=== PATIENT | male | born 1980 | race Caucasian/White ===

== ENCOUNTER 2023-05-23 06:12 | Observation (INO) ==
--- NOTE | 2023-04-29 15:11 | PAT Medication Instructions ---
Medication Instructions Date of Service April 29, 2023 Home Medications Natures Balance Fruits 2 tab PO DAILY Natures Balance Veges 2 tab PO DAILY ibuprofen 200 mg tablet 8,000 mg PO Q6H PRN Pain ASK your surgeon for instructions ibuprofen 200 mg tablet 8,000 mg PO Q6H PRN Pain STOP taking 2 weeks before surgery Natures Balance Fruits 2 tab PO DAILY Natures Balance Veges 2 tab PO DAILY OTHERWISE NOTHING TO EAT OR DRINK AFTER MIDNIGHT Other Notes If you have any questions please call us at [phone] or [phone] or [phone] or [phone]
--- NOTE | 2023-05-06 10:56 | Anesthesiology Consultation ---
Date of Service May 06, 2023 Assessment & Plan (1) Encounter for pre-operative examination: Infectious disease screening: Per assessment on 05/06/23: No known infectious disease contacts or current infectious disease symptoms. No noted Covid positive test result in past 90 days. Chart Review Chart Review: Acceptable Risk for Surgery and Patient seen in Pre Admission Testing Teaching & Discussion Pre-Anesthesia Teaching/Discussion Notes: Instructed NPO after midnight before surgery,except medications with 15 cc of water. Medication instructions provided according to the PAT guidelines. History Surgery Operation Date: 05/23/23 10:15 Proposed Procedures p C6 Corpectomy with Spinal Cord Monitoring - John Paul Clark DO Height/Weight Height: 5 ft 7 in Weight: 79.3 kg Allergies Allergy/AdvReac Type Severity Reaction Status Date / Time No Known Allergies Allergy Verified 04/29/23 10:56 Medications Home Medications Medication Instructions Recorded Confirmed Last Taken Natures Balance Fruits 2 tab PO DAILY 04/29/23 04/29/23 Unknown Natures Balance Veges 2 tab PO DAILY 04/29/23 04/29/23 Unknown ibuprofen 200 mg tablet 8,000 mg PO Q6H PRN Pain 04/29/23 04/29/23 Unknown Past Medical History Medical History Anxiety and depression Hx MRSA infection Dx UOC (2018), leg wound, treated w/abx Exercise / Class Metabolic Activity II 4-5 Yardwork/Stairs/Walk up hill (one FS (no CP, no SOB)) Past Family History Family History Other Cancer Past Surgical History Surgical History History of back surgery History of photorefractive keratectomy (PRK) Right Hx of LASIK Hx of umbilical hernia repair 2020 S/P wisdom tooth extraction w/ root canal-done under local Past Anesthesia History No Hx of Anesthesia Complications and No Family Hx of Anesthesia Complications History of PONV No Hx of PONV and No Hx of Motion Sickness Social History Smoking Status: Current every day smoker Smoking cigarettes per day: 20 cigs/day x approximately 20 years Do You Dip or Chew Tobacco: No Hx Alcohol Use: Yes Alcohol type: other (One 12 pack per week spread throughout week (twisted tea)) Hx Substance Use: Yes substance use type: marijuana (Inhaled) Review of Systems Chronic occasional cough + wheezing r/t smoking (no change from baseline). Patient denies chest pain, shortness of breath, dyspnea on exertion, fever, chills, palpitations. Physical Exam Vital Signs VITALS BP 125/82 P 67 TEMP 99.0 SP02 95%RA RESP 18 PHYSICAL Full cervical extension range of motion. Full TMJ range of motion. TMD 3.5 finger breaths Mallampati Score 2 Dentition: missing molars, + crown Lungs: course breath sounds Cardiac: regular rate and rhythm, no murmurs noted Spine: normal Carotid arteries: negative bruit Extremities: no LE edema Lab Results Anesthesia Preop Results Results Anesthesia Widget: WBC 8.48 K/ul (4.8-10.8) 05/06/23 Hgb 16.7 g/dl (14.0-18.0) 05/06/23 Hct 47.9 % (42.0-52.0) 05/06/23 Plt 263 K/uL (130-400) 05/06/23 Na 141 mmol/L (136-145) 05/06/23 K 3.9 mmol/L (3.5-5.1) 05/06/23 Cl 107 mmol/L (98-107) 05/06/23 CO2 28 mmol/L (21-32) 05/06/23 BUN 14 mg/dl (6-23) 05/06/23 Creat 1.25 mg/dl (0.6-1.4) 05/06/23 Glucose Level 139 mg/dl (70-99(Fasting)) H 05/06/23 PT 11.5 Seconds (9.0-12.0) 05/06/23 PTT 25.6 Seconds (21.0-31.0) 05/06/23 INR 1.1 (0.9-1.1) 05/06/23 Urine Color Yellow 05/06/23 Urine Appearance Clear (Clear) 05/06/23 Urine pH 5.5 (4.5-7.5) 05/06/23 Urine Specific [place] 1.018 (1.000-1.030) 05/06/23 Urine Protein Negative (Negative) 05/06/23 Urine Glucose (UA) Negative (Negative) 05/06/23 Urine Ketones Negative (Negative) 05/06/23 Urine Blood Negative (Negative) 05/06/23 Urine Nitrite Negative (Negative) 05/06/23 Urine Bilirubin Negative (Negative) 05/06/23 Urine Urobilinogen Negative (Negative) 05/06/23 Urine Leukocyte Esterase Negative (Negative) 05/06/23 Blood Type A Positive 05/06/23 Antibody Screen NEGATIVE 05/06/23 Testing Electrocardiogram Date: 05/06/23 NSR at 63bpm. Chest X-Ray Date: 05/06/23 FINDINGS: PA and lateral chest radiographs are compared to study dated 05/14/2016. The cardiomediastinal silhouette is unremarkable. The lungs and pleural spaces are clear. There is no pneumothorax. The bony thorax appears intact. IMPRESSION: No active disease in the chest. Echocardiogram Date: 01/28/22 EF 55-60%. Moderate NH. Borderline LVH.
[~2023-05-23 06:12] MED LIST: ACETAMINOPHEN 500 MG TAB PO SCH; CeleBREX 200 MG CAP PO SCH; GABAPENTIN 900 MG DOSE PO SCH; LR 15ML/HR IV SCH; LR 60ML/HR IV SCH; ceFAZolin 2000MG 2,000 MG/15 ML SYR IV SCH
[2023-05-23] MEDS ORDERED: DEXAMETHASONE SOD INJ 4 MG/ML VIAL ONE (06:41)
[2023-05-23] MEDS ORDERED: MIDAZOLAM HCL 1 MG/ML 2ML VIAL ONE (06:41)
[2023-05-23] MEDS ORDERED: fentaNYL citrate PF 100 MCG/2 ML VIAL ONE (06:41)
[2023-05-23] MEDS ORDERED: LIDOCAINE 2% 2 ML VIAL/AMP(20MG/ML) INFIL ONE (06:41)
[2023-05-23] MEDS ORDERED: ONDANSETRON INJ 2 MG/ML 2 ML VIAL ONE (06:41)
[2023-05-23] MEDS ORDERED: ROCURONIUM BROMIDE 10 MG/ML 5 ML VIAL IV ONE (06:41)
[2023-05-23] MEDS ORDERED: PROPOFOL IV EMULSION 10 MG/ML 20 ML VIAL IV ONE (06:41)
[2023-05-23] MEDS ORDERED: SUGAMMADEX SODIUM 200 MG/2 ML VIAL IV ONE (06:49)
[2023-05-23] MEDS ORDERED: ePHEDrine sulfate 50 MG/ML AMP IV PRN (07:01)
[2023-05-23] MEDS ORDERED: ONDANSETRON INJ 2 MG/ML 2 ML VIAL IV PRN ×2 (07:01→12:24)
[2023-05-23] MEDS ORDERED: ATROPINE SULFATE 0.1 MG/ML 10ML SYR IV PRN (07:01)
[2023-05-23] MEDS ORDERED: ceFAZolin 330 MG/ML 1 GM VIAL ONE (07:02)
--- NOTE | 2023-05-23 07:47 | History & Physical Bridge Note ---
Date of Service May 23, 2023 History & Physical Bridge Note I have examined the patient, reviewed the History & Physical and in the interval since the performance of the History & Physical I have noted the following changes of clinical significance: no changes noted
--- NOTE | 2023-05-23 07:48 | History & Physical Report ---
Date of Service May 23, 2023 Assessment & Plan (1) Cervical stenosis of spinal canal: Plan: C6 corpectomy History of Present Illness Chief Complaint: Neck and arm pain Primary Care Provider: Lisandro Grossman DO This is a 42-year-old male who presents with chronic persistent neck and arm pain after failing course of nonoperative care is here for surgical intervention. Allergies Allergy/AdvReac Type Severity Reaction Status Date / Time No Known Allergies Allergy Verified 05/23/23 06:36 Home Medications Medication Instructions Recorded Confirmed Type Natures Balance Fruits 2 tab PO DAILY 04/29/23 05/23/23 History Natures Balance Veges 2 tab PO DAILY 04/29/23 05/23/23 History ibuprofen 200 mg tablet 800 mg PO Q6H PRN Pain 04/29/23 05/23/23 History Past Med/Surg History Medical History Anxiety and depression Hx MRSA infection Dx UOC (2017), leg wound, treated w/abx Surgical History History of back surgery History of photorefractive keratectomy (PRK) Right Hx of LASIK Hx of umbilical hernia repair 2020 S/P wisdom tooth extraction w/ root canal-done under local Family History Other Cancer Social History Smoking Status: Current every day smoker Tobacco Type: Cigarettes Cigarettes Per Day: 20 cigs/day x approximately 20 years; Second Hand Exposure: No; Do You Dip or Chew Tobacco: No; Tobacco Cessation Education Requested by Patient: No Hx Alcohol Use: Yes Alcohol type: other (One 12 pack per week spread throughout week (twisted tea)) Hx Substance Use: Yes Preferred Language: Yi Communication Ability: Effective Soil Chemist Required: No Beliefs That Will Affect Care: None Current Living Situation: Alone Other Information That Helps Us Care for You: No Feels Safe at Home: Yes Safety Concerns: Feels Safe At This Time Assistive Devices: Glasses Physical Exam Physical Exam: Patient is alert and oriented Heart regular rhythm Lungs clear Results & Data Results & Data Vital Signs (Past 12 Hours) Vital Signs Temp Pulse Resp BP Pulse Ox O2 Del Method 05/23/23 06:36 37 C 50 L 18 135/83 97 Room Air
[2023-05-23] MEDS ORDERED: FLOSEAL HEMOSTATIC MATRIX 10ML TOP ONE (09:02)
--- NOTE | 2023-05-23 09:33 | Operative Report ---
Post Operative Report Pre & Post Diagnosis Operation Date: 05/23/23 07:45 Pre-Op Diagnosis: Cervical spinal stenosis with myeloradiculopathy Post-Op Diagnosis: Same I identified the patient and participated in the time-out.: Yes Procedure Operation Date: 05/23/23 07:45 Actual Procedures #1 anterior cervical corpectomy with bilateral foraminotomies of C6. #2 anterior cervical arthrodesis C5-C7. #3 placement of 25 mm peek cage between C4-5 and C7. #4 placement of our similar size Combined with I factor interbody cage. #5 application of K2 M plate and screws from C5-C7. Surgeon John Paul Clark DO Analytical Lead Jovana Bales Estimated Blood Loss 10 Findings Consistent with Post-Op Diagnosis Specimens None Indications This is a 42-year-old male presents above-mentioned diagnosis ultimately course of nonoperative care is here for surgical invention. Description of Procedure Patient is met with identified informed consent obtained. Patient was then taken to the operative suite underwent patient placed in supine position general stable with head Garcia however. Elevated prominences well-padded eyes inspected to ensure no external pressure responding. This point the anterior cervical spine was prepped and draped in a sterile fashion. The assistance of fluoroscopy Joyce Radford do see 6 vertebral body and a transverse incision was placed along the right anterior aspect of the cervical spine at minus region. Blunt dissection with the assistance of bipolar electrocautery was then performed down to expose the anterior cervical spine from C5-C7. Self-retaining tractors were placed. Then performed a complete discectomy C5-C6 out to the uncovertebral joints bilaterally followed by C6-C7. Burt distraction pins were then placed in C5 and C7 to distract across the C5 vertebral body.. A complete corpectomy of C6 was performed including removal of all posterior annular fibers longitude ligament bilateral foraminotomies performed. Endplates burred to subcortical bleeding bone and a 25 mm peek cage filled with locally harvested morselized autograft and I factor tapped in position. Distracted and pressors removed and a K2 M plate and screws applied with the assistance of fluoroscopy. Incision was then copiously irrigated explored to ensure no damage to surrounding structures or remaining bleeding. 10 round PATRICE drain inserted. The incision was then closed with 2-0 Vicryl in the fascia and a 4 Monocryl for final skin closure. Steri-Strips sterile dressings placed. Patient awakened taken to PACU in stable condition. Please note spinal cord monitoring was utilized at the procedure no changes noted. Lastly Jovana Bales was present at the entire procedure while the patient position complex portion of the surgery and fashion closure. I attest to the content of the Intraoperative Record and any orders documented therein. Any exceptions are noted below.
[2023-05-23] MEDS: fentaNYL citrate PF 100 MCG/2 ML VIAL IV PRN ×2 (09:57→10:04)
[2023-05-23] MEDS: HYDROmorphone INJ 2 MG/ML SYR/VIAL IV PRN ×4 (10:13→10:29)
--- NOTE | 2023-05-23 10:43 | Fluoroscopy Report ---
INTRAOPERATIVE RADIOGRAPHS CLINICAL HISTORY: C6 corpectomy. Fluoro time: 12 seconds Ka,r: 2.17 mGy FINDINGS: 2 spot fluoroscopic views of the cervical spine are presented. There has been corpectomy at C6 with anterior fusion at C5-C7. The orthopedic hardware appears intact. A surgical drain and endot lee tube are in place. IMPRESSION: Intraoperative images from cervical spinal fusion surgery as above. Electronically signed by: Elmo Berry M.D. 05/23/2023 10:42 AM
--- NOTE | 2023-05-23 11:53 | Anesthesiology Progress Note ---
Date of Service May 23, 2023 Anesthesia Post Procedure Vital Signs Vital Signs: Temp Pulse Pulse Resp BP Pulse Ox O2 Del Method 05/23/23 11:25 59 L 15 132/88 95 Nasal Cannula 05/23/23 11:10 48 L 12 128/89 95 Nasal Cannula 05/23/23 10:55 49 L 12 124/79 94 Nasal Cannula 05/23/23 10:40 36.7 C 51 L 12 139/85 94 Nasal Cannula 05/23/23 10:30 57 L 10 L 158/103 H 98 Nasal Cannula 05/23/23 10:20 64 12 150/101 H 96 Nasal Cannula 05/23/23 10:10 62 13 149/103 H 96 Nasal Cannula 05/23/23 10:00 58 L 12 143/115 H 96 Oxymask 05/23/23 09:50 63 12 137/96 93 Oxymask 05/23/23 09:40 36.1 C L 63 12 165/98 H 95 Oxymask 05/23/23 06:36 37 C 50 L 18 135/83 97 Room Air O2 Flow Rate 05/23/23 11:25 2 05/23/23 11:10 2 05/23/23 10:55 2 05/23/23 10:40 2 05/23/23 10:30 2 05/23/23 10:20 2 05/23/23 10:10 2 05/23/23 10:00 5 05/23/23 09:50 5 05/23/23 09:40 5 05/23/23 06:36 Pain Intensity Neck: Pain Intensity: 4 Anterior Neck: Pain Intensity: 3 Transfer of Care Handoff Completed per policy Notes Mental Status: alert / awake / arousable and participated in evaluation Patient Amnestic to Procedure: Yes Nausea / Vomiting: adequately controlled Pain: adequately controlled Airway Patency, RR, SpO2: stable & adequate BP & HR: stable & adequate Hydration State: stable & adequate Anesthetic Complications: no major complications apparent and Pt Satisfied with anesthetic care
[2023-05-23] MEDS ORDERED: dexAMETHasone 8 MG in SYRINGE 0 ML IV PRN (12:24)
[2023-05-23] MEDS ORDERED: METOCLOPRAMIDE HCL INJ 5 MG/ML 2 ML VIAL IV PRN (12:24)
[2023-05-23] MEDS ORDERED: bisacodyL 10 MG SUPP PR PRN (12:24)
[2023-05-23] MEDS ORDERED: SOD PHOSPHATE/SOD BIPHOSPHATE ENEMA 132 ML BTL PR PRN (12:24)
[2023-05-23] MEDS ORDERED: RACEPINEPHRINE 2.25% NEBU SOLN 0.5 ML VIAL INH PRN (12:24)
[2023-05-23] MEDS ORDERED: DO NOT ADMINISTER FLU VACCINE PRN (12:24)
[2023-05-23] MEDS ORDERED: hydrOXYzine HCl 25 MG TAB PO PRN (12:24)
[2023-05-23] MEDS ORDERED: PROMETHAZINE HCL 12.5 MG in SODIUM CHLORIDE 0.9% 50 ML IV PRN (12:24)
[2023-05-23] MEDS ORDERED: ALUMINUM/MAGNESIUM SUSP 30 ML UDC PO PRN (12:24)
[2023-05-23] MEDS ORDERED: ACETAMINOPHEN 500 MG TAB PO PRN (12:24)
[2023-05-23] MEDS ORDERED: ACETAMINOPHEN 1,000 MG/100 ML VIAL IV PRN (12:24)
[2023-05-23] MEDS ORDERED: MAGNESIUM HYDROXIDE SUSP 30 ML UDC PO PRN (12:24)
[2023-05-23] MEDS ORDERED: NALOXONE HCL 0.4 MG/1 ML VIAL/CARP IV PRN (12:24)
[2023-05-23] MEDS ORDERED: ONDANSETRON 4 MG OD TAB PO PRN (12:24)
[2023-05-23] MEDS ORDERED: DO NOT ADMINISTER PNEUMOCOCCAL VACCINE PRN (12:24)
[2023-05-23] MEDS ORDERED: traMADol HCL 50 MG TABLET PO PRN (12:24)
[2023-05-23] MEDS ORDERED: HYDROmorphone INJ 1 MG/ML SYRINGE IV PRN (12:24)
[2023-05-23] MEDS ORDERED: FAMOTIDINE 20 MG TAB PO PRN (12:24)
[2023-05-23] MEDS ORDERED: LORazepam 2 MG/1 ML VIAL IV PRN (12:24)
[2023-05-23] MEDS ORDERED: diphenhydrAMINE Capsule 25 MG CAP PO PRN (12:24)
[2023-05-23] MEDS: ceFAZolin 2000MG 2,000 MG/15 ML SYR IV SCH (16:24)
[2023-05-23] MEDS: LACTATED RINGER'S 1,000 ML IV SCH (16:25)
[2023-05-23] MEDS: oxyCODONE HCL IR 5 MG TAB (IMMEDIATE RELEASE) PO PRN (17:37)
[2023-05-23] MEDS ORDERED: DOCUSATE SODIUM/SENNA 50/8.6MG TAB PO SCH (21:00)
[2023-05-23] MEDS: LORazepam 0.5 MG TAB PO PRN (21:06)
[2023-05-23] MEDS: HYDROmorphone INJ 0.5 MG/0.5 ML SYR IV PRN (23:19)
[2023-05-24] MEDS: ceFAZolin 2000MG 2,000 MG/15 ML SYR IV SCH (01:10)
--- NOTE | 2023-05-24 01:49 | Hospitalist Consultation ---
Date of Consultation May 24, 2023 Assessment & Plan (1) Shortness of breath: 42 yo male with PMHx of cervical stenosis. Post op day 1 s/p anterior cervical corpectomy with bilateral foraminotomies with fusion. Hospitalist service consulted for shortness of breath. #Shortness of breath -minimal acute on chronic sob with phlegm production in lungs. Typically able to cough up secretions however unable to do so 2/2 recent cervical surgery. Exam with diffuse rales/wheezes. Patient is a chronic smoker, suspect component of COPD ?in exacerbation. Vitals wnl on RA, without accessory muscle use. Unfortunately patient will be limited for secretion elimination due to the surgery. Low suspicion for PE at this time. -CXR unremarkable per my read. Appears similar to imaging 2 wks ago. -start duonebs scheduled -due for dexamethasone in the am per ortho, which should also help if underlying COPD DVT ppx: ambulation FEN/GI: clears Code Status: full Dispo: med surg Thank you for allowing the hospital team to participate in this patient's care. Plan as above. Will continue to follow. (2) Rhonchi: (3) Cervical stenosis of spinal canal: Supervising Physician Co-Signing Physician Notes Attending addendum: I have supervised the medical residents activities, and agree with the H&P unless as otherwise noted. Assessment and Plan: Shortness of breath- History of tobacco use, likely undiagnosed COPD with exacerbation Chest x-ray without acute findings Duonebs every 4 hours while awake and every 2 hours when necessary. Dexamethasone to be started for orthopedic process in a.m., will help underlying COPD as well Status post spine surgery- Otherwise stable vital signs History of Present Illness Reason for Consultation: shortness of breath Attending Physician: John Paul Clark DO History of Present Illness 42 yo male with PMHx of cervical stenosis. Post op day 1 s/p anterior cervical corpectomy with bilateral foraminotomies with fusion. Hospitalist service consulted for shortness of breath. Patient states he has chronic intermittent shortness of breath with phlegm production he usually coughs up. However, due to his surgery, he is not allowed to cough anything up. He can feel the phlegm in his chest and has very minimal shortness of breath at this time. Denies headache, cp, abd pain, N/V/D, fevers, chills, fatigue. He is a current smoker, 1 pack/day for past 20 years. No previous diagnosis of COPD. Not on inhalers at home. Allergies Allergy/AdvReac Type Severity Reaction Status Date / Time No Known Allergies Allergy Verified 05/23/23 06:36 Home Medications Medication Instructions Recorded Confirmed Type Natures Balance Fruits 2 tab PO DAILY 04/29/23 05/23/23 History Natures Balance Veges 2 tab PO DAILY 04/29/23 05/23/23 History ibuprofen 200 mg tablet 800 mg PO Q6H PRN Pain 04/29/23 05/23/23 History oxycodone 5 mg tablet 5 mg PO Q6H PRN pain #20 tabs 05/23/23 Rx tramadol 50 mg tablet 50 mg PO Q6H PRN pain, moderate 05/23/23 Rx #20 tabs Patient History Medical History Anxiety and depression Hx MRSA infection Dx UOC (2017), leg wound, treated w/abx Surgical History History of back surgery History of photorefractive keratectomy (PRK) Right Hx of LASIK Hx of umbilical hernia repair 2020 S/P wisdom tooth extraction w/ root canal-done under local Family History Other Cancer Social History Smoking Status: Current every day smoker Tobacco Type: Cigarettes Cigarettes Per Day: 20 cigs/day x approximately 20 years; Second Hand Exposure: No; Do You Dip or Chew Tobacco: No; Tobacco Cessation Education Requested by Patient: No Hx Alcohol Use: Yes Alcohol type: other (One 12 pack per week spread throughout week (twisted tea)) Hx Substance Use: Yes Preferred Language: Slovenian Communication Ability: Effective Piece Goods Clerk Required: No Beliefs That Will Affect Care: None Current Living Situation: Alone Other Information That Helps Us Care for You: No Feels Safe at Home: Yes Safety Concerns: Feels Safe At This Time Assistive Devices: Glasses Review of Systems Review of Systems: All systems reviewed & are unremarkable except as noted in HPI & below Physical Exam Physical Exam: Constitutional: in no acute distress, pleasant and normal affect, intact memory. AOx3. Vitals as above. HEENT: No scleral injection or discharge.Moist mucous membranes. Neck: Supple without lymphadenopathy or thyromegaly. Trachea midline. Bandages over surgical site at anterior cervical region. Lungs: +diffuse rhonchi with wheezing. Normal work of breathing. Cardiac: Regular rate and rhythm.No murmurs.No lower extremity edema. 2+ distal peripheral pulses. No calf pain. Neg homans. Abdomen: Bowel sounds present. Soft, nontender, and nondistended.No guarding. No hepatosplenomegaly. MSK: No cyanosis or clubbing. Extremities motor strength 5/5. Skin: No warm, dry. Neurologic: no focal deficits Results & Data Results & Data Vital Signs (Past 12 Hours) Vital Signs Temp Pulse Resp BP Pulse Ox O2 Del Method 05/23/23 20:00 Room Air 05/24/23 00:54 37.0 C 60 18 128/74 96 Room Air 05/23/23 22:54 36.8 C 66 18 143/82 H 96 Room Air 05/23/23 22:57 68 18 97 Room Air 05/23/23 20:00 69 18 98 Room Air 05/23/23 20:48 36.5 C 56 L 18 125/76 96 Room Air 05/23/23 19:00 36.8 C 59 L 18 135/88 99 Room Air 05/23/23 17:40 97 Room Air 05/23/23 15:00 63 18 97 Room Air 05/23/23 15:14 36.4 C L 58 L 16 120/84 98 Room Air 05/23/23 14:16 36.8 C 56 L 16 130/83 95 Room Air Laboratory Results Impressions Cervical Spine X-Ray 05/23/23 07:45 INTRAOPERATIVE RADIOGRAPHS CLINICAL HISTORY: C6 corpectomy. Fluoro time: 12 seconds Ka,r: 2.17 mGy FINDINGS: 2 spot fluoroscopic views of the cervical spine are presented. There has been corpectomy at C6 with anterior fusion at C5-C7. The orthopedic hardware appears intact. A surgical drain and endotracheal tube are in place. IMPRESSION: Intraoperative images from cervical spinal fusion surgery as above. Electronically signed by: Elmo Berry M.D. 05/23/2023 10:42 AM Resident Activity Tracking Resident Involvement: Resident Care Provided Care Provided: [facility]
[2023-05-24] MEDS: ALBUT/IPRATROP 3MG/0.5MG NEB 3 ML VIAL NEB SCH ×3 (02:05→10:05)
[2023-05-24] MEDS: HYDROmorphone INJ 0.5 MG/0.5 ML SYR IV PRN (02:24)
[2023-05-24] MEDS: LACTATED RINGER'S 1,000 ML IV SCH (02:26)
[2023-05-24] MEDS ORDERED: POLYETHYLENE (MIRALAX) 17 GM PACK PO SCH (06:00)
[2023-05-24] MEDS: oxyCODONE HCL IR 5 MG TAB (IMMEDIATE RELEASE) PO PRN (06:09)
--- NOTE | 2023-05-24 06:29 | Billing Data ---
Date of Service May 24, 2023 Coding Level of Care Code 86839 IN/OBS CONSULT LVL 3,45M
[2023-05-24 06:51] LABS: Basophils # (auto) 0.04 K/uL (0.00-0.20); Basophils % (auto) 0.2 %; Hematocrit (blood only) 41.3 % (42.0-52.0); Hemoglobin 14.6 g/dl (14.0-18.0); Immature Granulocytes # (auto) 0.15 K/uL (0.01-0.20); Immature Granulocytes % (auto) 0.6 %; Lymphocytes # (auto) 1.73 K/uL (1.20-3.40); Lymphocytes % (auto) 7.5 %; Mean Corpuscular Hemoglobin 30.1 pg (25.0-34.0); Mean Corpuscular Hgb Conc 35.4 g/dL (32.0-36.0); Mean Corpuscular Volume 85.2 fL (80.0-100.0); Mean Platelet Volume 10.9 fL (9.4-12.4); Monocytes # (auto) 1.48 K/uL (0.11-0.59); Monocytes % (auto) 6.4 %; Neutrophils # (auto) 19.71 K/uL (1.40-6.50); Neutrophils % (auto) 85.3 %; Platelet Count 234 K/uL (130-400); RDW Standard Deviation 37.3 fL (36.4-46.3); Red Blood Count 4.85 M/uL (4.70-6.10); White Blood Count 23.11 K/ul (4.8-10.8)
[2023-05-24 06:54] LABS: BUN Creatinine Ratio 10.9 (10-20); Calcium 8.5 mg/dl (8.6-10.3); Creatinine Clr Calc Pharmacy 88.2 ml/min; Est GFR (African American) 105.1 ml/min; Est GFR (Non-African American) 90.7 ml/min; Potassium 3.9 mmol/L (3.5-5.1)
--- NOTE | 2023-05-24 07:13 | XRay Report ---
XR chest 1V portable CLINICAL HISTORY: shortness of breath TECHNIQUE: Single frontal radiograph of the chest was obtained. Comparison: Comparison is made to chest radiograph 05/06/2023 FINDINGS: ACDF seen. Cardiomegaly is noted. The lungs are clear. No evidence of pleural effusion or pneumothora x. IMPRESSION: No acute chest disease. ACT 112: Negative or not required by law. Electronically signed by: Antonio Lucio M.D. 05/24/2023 7:11 AM
[2023-05-24] MEDS: LORazepam 0.5 MG TAB PO PRN (08:45)
[2023-05-24] MEDS ORDERED: dexAMETHasone 6 MG in SYRINGE 0 ML IV SCH (09:00)
--- NOTE | 2023-05-24 09:46 | Discharge Summary ---
Date of Service May 24, 2023 Admission HPI Per Admitting Provider This is a 42-year-old male who presents with chronic persistent neck and arm pain after failing course of nonoperative care is here for surgical intervention. Principal Diagnosis Cervical spinal stenosis with myeloradiculopathy Discharge Data Allergies Allergy/AdvReac Type Severity Reaction Status Date / Time No Known Allergies Allergy Verified 05/23/23 06:36 Consultations 05/24/23 00:41 Consult Hospitalist Routine Procedures Performed Operation Date: 05/23/23 07:45 Actual Procedures p C6 Corpectomy with Spinal Cord Monitoring(Not Applicable) - John Paul Clark DO Ordered Studies 05/23/23 07:45 FL cervical 2-3V Routine Hospital Course (1) Cervical stenosis of spinal canal: Patient underwent anterior cervical corpectomy and fusion trial as well as negative orthopedic for postoperative. Postop day #1 he was up ambulating swallowing well no hoarseness. Arm symptoms markedly improved. PATRICE drain decreasing probably. Subsequently discharged home. Discharge orders and instructions found in chart for further review. Total Time Total Time Spent Total Time Spent (In Minutes): 20 minutes Discharge Plan Discharge Items Patient Disposition: Home - Self-Care Reason For Visit: POSTOP Discharge Diagnosis: Cervical spinal stenosis with myeloradiculopathy Activity: As commented below Non-emergency contact: Primary Care Provider Call non-emergency contact if: you have any medication questions Follow-up/Referrals: Lisandro Grossman DO [Primary Care Provider] - Diet: Regular Addtl Attending Provider Instructions: ACTIVITY RECOMMENDATIONS: SELF CARE INSTRUCTIONS AFTER CERVICAL FUSIONS 1. No smoking. Smoking drastically decreases the chance of a solid fusion. 2. No bending, lifting more than 5 pounds, or twisting (roll like a log when turning in bed). 3. You may shower 3 days after surgery. Thoroughly dry wound. Do not soak in the tub. 4. Cervical collar: Must be worn at all times including sleeping. You may remove the brace only to bath, eat and if you are sitting in a recliner. 5. Please walk as much as you can for exercise. Gradually increase the distance that you walk as your endurance increases. SPECIAL CARE INSTRUCTIONS: VERY IMPORTANT TO READ AND REVIEW A. Do not take any anti-inflammatory medications (i.e. Indocin, Advil, Aspirin, Naprosyn, Aleve, Motrin, etc.) as these may inhibit the chance of a solid fusion. Tylenol is okay to take. B. Your surgical incision has been closed with a cosmetic suture under the skin that will dissolve in about 6 weeks. In 14 days, you can use a pair of clean scissors and cut the suture that is left outside of the skin at the ends of your incision. C. Complications are uncommon, but please contact us if you have any signs or symptoms of: 1. wound infection (fever higher than 102.5 degrees F, redness, separation of wound, drainage, or increasing pain from the incision) 2. blood clots in legs (pain, swelling, redness and warmth in legs) 3. urinary tract infection (fever higher than 102.5 degrees, burning upon urination or increased frequency of urination) 4. nerve problems (inability to walk on your toes or heels, numbness, loss of bowel or bladder control) 5. any other symptoms that concern you. D. Please call the office at if you have any concerns or questions about your operation or recovery. MANAGING PAIN AFTER SPINAL SURGERY 1. Narcotic medication is intended for short-term use and will be provided for surgical pain. Surgical pain usually lasts for a period of 4-6 weeks. Narcotic medication includes Percocet, Vicodin, Darvocet, Tylenol #3 or Lortab. 2. Longer-term pain is more appropriately treated with non-narcotic medication such as Tylenol ES. 3. Muscle spasm is not appropriately treated with narcotics. Muscle relaxers such as Soma, Flexeril or Skelaxin can be used along with Tylenol ES. 4. Remember that we all live with some "aches and pains". This is not unusual or uncommon after an injury or as we get older. 5. We will provide appropriate medication within the normal guidelines of their prescribed use. We will also be very cautious and aware of potential abuse and extended duration of patients' medication needs. 6. Please allow 2-3 days to process refills. Prescriptions will not be mailed but must be picked up at the office. FOLLOW UP VISIT: Keep your scheduled follow-up appointment. Any questions, please call the office at . Pending Studies at Discharge: No Stand-Alone Forms: My netTALK, Smoking Cessation Medications and DC Order Prescriptions: New tramadol 50 mg tablet 50 mg PO Q6H PRN (Reason: pain, moderate) Qty: 20 0RF oxycodone 5 mg tablet 5 mg PO Q6H PRN (Reason: pain) Qty: 20 0RF Continued ibuprofen 200 mg Tablet 800 mg PO Q6H PRN (Reason: Pain) Natures Balance Fruits 2 tab PO DAILY Natures Balance Veges 2 tab PO DAILY Discharge Orders: Discharge Order (Routine); Ordered 05/24/23 Ordered By: John Paul Clark Admission Data Admit Date/Time: 05/23/23 09:36 Attending Provider: John Paul Clark Admit Provider: John Paul Clark Primary Care Provider: Lisandro Grossman Other Providers: Narciso Sexton ; Julius Rios
--- NOTE | 2023-05-24 12:26 | Hospitalist Progress Note ---
Date of Service May 24, 2023 Assessment & Plan (1) Shortness of breath: Plan: Resolved. Normal oxygen saturation on room air. Chest x-ray negative (2) Rhonchi: Plan: Resolved (3) Cervical stenosis of spinal canal: Plan: Postoperative day #1 after C6 anterior cervical corpectomy, arthrodesis at C5- C7, instrumentation. He has been seen by the primary service. He is medically stable for discharge today Plan Home todayMay 24, per primary service Admission and Anticipated Discharge Date Admission Date: May 23, 2023 Subjective The patient was seen by me today, May 24, before he was discharged. He is medically stable and doing well. Review of Systems Review of Systems: Constitutional-no fever or chills ENT-no blurred vision, no double vision, no epistaxis, no sore throat. Postoperative neck discomfort at surgical site as expected Respiratory-no cough, no wheezing, no shortness of breath Cardiac-no palpitations, no chest pain, no syncope GI-no nausea, vomiting, diarrhea, melena, hematochezia -no urinary retention, no urinary incontinence, no dysuria, no hematuria Musculoskeletal-no joint pain, no muscle tenderness Skin-no bruising, no rashes, no pruritus Neuro-no isolated weakness, no paresthesia, no weakness Psych-no depression, no anxiety Physical Exam Physical Exam: General-alert and oriented x3, no fevers, no chills HEENT-head atraumatic and normocephalic, pupils equal and reactive to light, extraocular muscles intact Neck-no lymphadenopathy or thyromegaly, trachea midline. Surgical site clean and dry Chest-clear to auscultation percussion. No rales wheezing or rhonchi Cardiac-regular rate and rhythm, normal S1 and S2 Abdomen-normal bowel sounds, nontender, no hepatosplenomegaly Extremities-no cyanosis, clubbing, or edema Neuro-cranial nerves II through XII intact, motor and sensory function within normal limits, strength symmetrical, no focal deficits Psych-normal affect, normal mood Results & Data Results & Data Vital Signs (Past 12 Hours) Vital Signs Temp Pulse Resp BP BP Pulse Ox O2 Del Method 05/24/23 10:06 81 16 96 Room Air 05/24/23 09:57 36.4 C L 68 16 116/76 131/84 100 05/24/23 07:15 Room Air 05/24/23 07:15 36.4 C L 68 16 116/76 100 Room Air 05/24/23 07:13 62 18 Room Air 05/24/23 04:54 37.0 C 62 18 115/77 96 Room Air 05/24/23 02:54 36.9 C 66 16 126/60 95 Room Air 05/24/23 02:06 57 L 16 95 Room Air 05/24/23 00:54 37.0 C 60 18 128/74 96 Room Air FiO2 05/24/23 10:06 05/24/23 09:57 05/24/23 07:15 05/24/23 07:15 05/24/23 07:13 94 05/24/23 04:54 05/24/23 02:54 05/24/23 02:06 05/24/23 00:54 Laboratory Results 05/24/23 05:44 05/24/23 05:44 PG Care Time/CCT Total # of Minutes Spent Total Time Spent with Patient: Total time spent is greater than 50% in coordination of care (as documented) at patient's floor/unit and/or counseling patient: Coding Level of Care Code 57266 SUB INP/OBS CARE 3/50MIN Diagnoses Shortness of breath R06.02 Rhonchi R09.89 Cervical stenosis of spinal canal M48.02
== END 2023-05-24 11:20 | disposition home or self-care (01) ==
LOC: PACUINP 06:12 → ASU 06:12 → 3E 12:19